=== PATIENT | male | born 1950 | race African-American/Black ===

== ENCOUNTER 2016-06-16 07:54 | Emergency (ER) | payer MEDICAID, OTHER ==
[~2016-06-16] VITALS: Ht 177.8 cm; Wt 111.5 kg
[2016-06-16] MEDS ORDERED: METF500T4 PO (08:08)
[2016-06-16] MEDS ORDERED: LOSA50TA20 PO (08:08)
[2016-06-16] MEDS ORDERED: AMLO2.5T45 PO (08:08)
[2016-06-16] MEDS ORDERED: HYDR-523 PO (08:08)
[2016-06-16] MEDS ORDERED: [UNRECOGNIZED DRUG - OTHER] (08:08)
[2016-06-16] MEDS ORDERED: OXYCODONE HCL/ACETAMINOPHEN 5/325MG TABLET PO ONE (09:00)
[2016-06-16 10:33] VITALS: BP 132/88
== END 2016-06-16 11:26 | disposition home or self-care (01) ==
LOC: ER 07:56
DX: M10.9 Gout, unspecified (principal); I10 Essential (primary) hypertension; M54.9 Dorsalgia, unspecified; G89.29 Other chronic pain; Z79.899 Other long term (current) drug therapy; E11.9 Type 2 diabetes mellitus without complications
CPT/HCPCS: 73660; 82962; 99284; Z7610